=== PATIENT | male | born 1960 | race Caucasian/White ===

== ENCOUNTER 2024-03-15 15:47 | Emergency (ER) | payer BC, SELFPAY ==
[2024-03-15 15:49] VITALS: BP 159/85; PULSE 54; RESP 16; TEMP 36.7; O2SAT 99; BMI 23.0
--- NOTE | 2024-03-15 15:55 | ED.GENADULT ---
HPI - General Adult General Date Seen: 03/15/24 Chief complaint: Chest Pain Stated complaint: chest pain Time Seen by Provider: 03/15/24 15:55 History of Present Illness HPI narrative: 63 yo M with H/o with a history of atherosclerotic heart disease (2 stents about 9 years ago done at [facility]) symptoms presented with some atypical intermittent nonexertional chest pain. Labs were initially normal, had an abnormal stress test prompting his angiogram leading to his stents. Since then he has been on aspirin and atorvastatin but does not have a history of dyslipidemia. Also no history of high blood pressure, diabetes, smoking, or family history of coronary disease. He presents to the ER today with his for chest pain. He has been having episodes of substernal/S right upper chest pain off and on for the past several weeks. He has had perhaps 6 of them more so over the weeks. All of his episodes prior to today have been episodes where he has been sleeping and then awoken from sleep by chest discomfort. They last a few minutes and usually get better after he gets up and drink some water. He has not had any daytime chest pain or any exertional chest pain. He is fairly active in his generally around her. However due to some low back pain he has not been doing as much running lately. He has been walking. He actually has purchased an exercise bike and will start using that in the next couple of days. He went for a long 6 mi walk yesterday and had no symptoms of chest pain or shortness of breath. Today he was feeling fine this morning. He ate a light breakfast no lunch. [facility] with his . In the end the 1st half of the plate he began to feel unusual. Vaguely short of breath, some discomfort in his chest. It lasted for about 10 minutes until the intermission. He was able to get up and go get a drink of water. That helped a little bit but he still felt a bit unusual. All vaguely short of breath. Some mild ?tension? in his left trapezius ridge. No pain through to his back. He did not feel any palpitations. Mild nausea. No abdominal pain. No leg swelling. No pleuritic pain. Pain persisted after leaving the theatre. He and his were debating about whether he should come to the ER or not. Ultimately he decided to come. They drove from [place] back here to [place] which is home for him. Now that he is here his chest pain is resolved. It probably lasted less than an hour altogether. He is currently symptom free. He is under lot of stress with work and wonders if his chest pains could be stress related. He does not usually eat spicy foods. He has not had any swelling in his legs. He has had plane rides across the [facility] lately including to [place], [place], and [place]. He had a stress echo done through the [facility] health monitoring program a year ago that was normal. He has not had an angiogram since his stents were placed 9 years ago. Per records from [facility] link her medications and Aspirin 81 mg daily Atorvastatin 40 mg daily Vitamin D3 Flexeril for his low back spasm Nitroglycerin p.r.n. (has not taken) Trazodone 50 mg q.h.s. [place] 3 fatty acids Related Data Home Medications ?Medication ?Instructions ?Recorded ?Confirmed aspirin 81 mg capsule 81 mg PO DAILY 03/15/24 03/15/24 atorvastatin 40 mg tablet 40 mg PO DAILY 03/15/24 03/15/24 Previous Rx's ?Medication ?Instructions ?Recorded omeprazole 40 mg capsule,delayed 40 mg PO DAILY #30 caps 03/15/24 release Allergies Allergy/AdvReac Type Severity Reaction Status Date / Time bee venom protein (honey bee) AdvReac Severe Hypotension Verified 03/15/24 15:57 [facility] Social History Smoking Status: Never smoker Do you use any of these nicotine containing products: None Second hand tobacco smoke exposure: No How often do you have a drink containing alcohol: never AUDIT-C Alcohol total score: 0 Non-prescribed substance use: denies use Exam Narrative: Exam Narrative: Constitutional: Appears well-developed and well-nourished. Alert. Conversant. Non toxic. HENT: Head: Atraumatic. Nose: Nose normal. Mouth/Throat: Oral mucosa is clear and moist. no trismus. Pharynx normal. Tonsils symmetric. No tonsillar enlargement, erythema, or exudate. Eyes: Conjunctivae normal. EOM normal. Pupils equal, round, and reactive to light. No scleral icterus. Neck: Normal range of motion. Neck supple. No tracheal deviation present. No JVD Cardiovascular: Normal rate, regular rhythm. No gallop. No friction rub. No murmur heard. Symmetric radial and PT artery pulses Pulmonary/Chest: Effort normal. No stridor. No respiratory distress. No wheezes. No rales. No rhonchi . No tenderness. Abdominal: Soft. No distension. No mass. No tenderness. No rebound. No guarding. Musculoskeletal: RUE: Normal range of motion. No tenderness. No deformity LUE: Normal range of motion. No tenderness. No deformity RLE: Normal range of motion. No edema. No tenderness. No deformity LLE: Normal range of motion. No edema. No tenderness. No deformity Lymph: No cervical adenopathy. Neurological: Alert and oriented to person, place, and time. Normal strength. CN II-VII intact. No sensory deficit. GCS eye subscore is 4. GCS verbal subscore is 5. GCS motor subscore is 6. Normal coordination Skin: Skin is warm and dry. No rash noted. No pallor. Normal capillary refill. Psychiatric: Normal mood. Normal affect. Const: Vital Signs, click to edit/add: Vital Signs - 24 hr 03/15/24 15:49 03/15/24 17:07 03/15/24 17:08 Temperature 98.0 F Pulse Rate 53 L 57 L Pulse Rate [Pulse Oximeter] 54 L Respiratory Rate 16 Blood Pressure 135/86 Blood Pressure [Ri ght Upper Arm] 159/85 H Pulse Oximetry 99 100 99 Oxygen Delivery Me thod Room Air Course Vital Signs Vital signs: Initial Vital Signs Temperature 98.0 F 03/15/24 15:49 Temperature Source Temporal Artery Scan 03/15/24 15:49 Pulse Rate 54 L 03/15/24 15:49 Respiratory Rate 16 03/15/24 15:49 Blood Pressure 159/85 H 03/15/24 15:49 Blood Pressure Mean 109 H 03/15/24 15:49 Blood Pressure Position Sitting 03/15/24 15:49 Pulse Oximetry 99 03/15/24 15:49 Oxygen Delivery Method Room Air 03/15/24 15:49 Vital Signs Temperature 98.0 F 03/15/24 15:49 Pulse Rate 54 L 03/15/24 15:49 Respiratory Rate 16 03/15/24 15:49 Blood Pressure 159/85 H 03/15/24 15:49 Pulse Oximetry 99 03/15/24 15:49 Oxygen Delivery Method Room Air 03/15/24 15:49 Temperature 98.0 F 03/15/24 15:49 Pulse Rate 57 L 03/15/24 17:08 Respiratory Rate 16 03/15/24 15:49 Blood Pressure 135/86 03/15/24 17:07 Pulse Oximetry 99 03/15/24 17:08 Oxygen Delivery Method Room Air 03/15/24 15:49 Medications Administered Medications: Discontinued Medications Generic Name Dose Route Start Last Admin Trade Name Hilton PRN Reason Stop Dose Admin Aspirin 324 mg 03/15/24 16:26 03/15/24 16:36 Aspirin 81 Mg Tab.Chew PO 03/15/24 16:27 324 mg ONCE ONE Administration Medical Decision Making MDM Narrative Medical decision making narrative: This patient presents to the ER today for evaluation of chest pain. He does have a history of coronary artery disease with stents placed 9 years ago and a pattern of similar atypical nonexertional chest pain preceding that. His current episodes of chest pain have been occurring at rest off and on for the past couple of weeks and occurred again this afternoon while he was watching a theatre production. He has also had some activity. He is typically an avid runner but has been doing a lot less running lately because of some low back problems. However he does a lot of activity and walking without any exertional chest pain. Differential was broad. No evidence of palpitations, syncope or other cardiac dysrhythmia. He does have sinus bradycardia on his EKG. We considered possible ACS, however workup with EKG and troponin is negative. HEART score is 3. Given time since onset of symptoms, we did check initial and 3 hour delta troponin. I do not think the patient needs to be admitted for further sets of enzymes. Discussed with Cardiology through [facility], . He was able to access patient's previous records and saw his negative stress echo from last December. Discussed the patient's recent chest pains and chest pain today. He agrees with the plan to check delta troponins here in the ER. If normal patient should follow-up with his primary care provider to arrange an outpatient nuclear perfusion study. At this point with negative delta troponins, in the absence of a a clear exertional angina pattern, cardiology advises against going directed for cardiac catheterization. Discussed the plan of care with the patient and his . They will follow-up with her primary the [facility] and arrange the nuclear medicine perfusion study. Return to the ER with any more severe pains, frequent pains, prolonged duration, worsening shortness of breath, or any other worsening symptoms. EKG shows no evidence for pericarditis. Clinical presentation not suggestive of myocarditis. Chest x-ray shows no evidence for pneumonia, pneumothorax, pulmonary edema, pleural effusion, rib fracture, cardiomegaly. Mediastinum is normal on the x-ray. The patient has no ripping or tearing pain through to the back and has symmetric pulses on exam, no other acute neuro findings so I doubt aortic dissection. Risk of radiation and contrast exposure would outweigh the benefit of CT angiogram. We considered PE for this patient. Overall is low risk but risk factor would be recent travel. Screening D-dimer is normal. Therefore risk of radiation and contrast would outweigh the benefit of CT PA. No wheezing or bronchospasm to suggest COPD/asthma. No signs of chest wall cellulitis, shingles, injury. No right upper quadrant pain to suggest referred pain from cholecystitis. Patient admits that he is under lot of stress related to work lately and wonders if his pains could be anxiety. Also is pains at night tend to get better when he drinks water which could suggest possible esophageal reflux or esophageal spasm. We will try him on empiric course of Prilosec to see if that helps. While we do that though, the patient is following up for further outpatient cardiac workup. With reasonable clinical confidence, I think the patient is safe for outpatient follow up. Discussed return precautions. Questions answered. Patient voices comfort with the plan. Lab Data Labs: Lab Results 03/15/24 Range/Units 16:34 WBC 7.55 (4.50-11.00) K/uL RBC 4.65 (4.30-5.90) m/uL Hgb 13.5 (13.5-17.5) gm/dL Hct 40.6 (37.0-53.0) % MCV 87 (80-100) fL MCH 29 (26-34) pg MCHC 33 (32-36) gm/dL RDW Coeff of Estrada 11.5 (11.5-15.5) % Plt Count 200 (140-440) K/uL Neut % (Auto) 67.3 (42.0-72.0) % Lymph % (Auto) 23.3 (20-44) % [place] % (Auto) 5.4 (0.0-11.0) % Eos % (Auto) 3.0 (0.0-7.0) % Baso % (Auto) 0.1 (0.0-3.0) % Neut # (Auto) 5.07 (1.7-7.0) K/uL Lymph # (Auto) 1.76 (0.90-2.90) K/uL Churchill # (Auto) 0.40 (0.00-0.90) K/UL Eos # (Auto) 0.23 (0.00-0.50) K/uL Baso # (Auto) 0.01 (0.00-0.30) K/uL Abs Immat Gran (auto) 0.07 (0.00-0.30) K/uL Imm/Tot Granulo (auto) 0.9 % D-Dimer Quant (PE/DVT) 0.34 (0.00-0.50) ug/ml Sodium 137 (135-149) mmol/L Potassium 3.8 (3.6-5.1) mmol/L Chloride 101 (96-114) mmol/L Carbon Dioxide 30 (20-32) mmol/L Anion Gap 6 L (7-15) mEq/L BUN 22 (7-30) mg/dL Creatinine 0.8 (0.5-1.5) mg/dL Estimated Creat Clear 79.63 Estimated GFR 101 ml/min Glucose 97 (60-115) mg/dL Calcium 9.2 (8.4-10.6) mg/dL POC Troponin I 0.00 L (0.01-0.04) ng/ml Imaging Data Chest x-ray: My impression: Normal cardiac silhouette. Normal mediastinum. Clear lung ying. No rib fractures. No pneumothorax. No pleural effusions. Radiologist's impression: IMPRESSION: No findings to explain the clinical history. ECG Data Attestation: I personally reviewed and interpreted this ECG as follows: Interpretation: Sinus bradycardia Rate: 50 [place]: 172 QRS axis: Normal axis. Q-wave in V1. ST segment/T wave: No ST segment elevation or depression. QTc: 419 Discharge Plan Discharge Clinical Impression: Chest pain Patient Disposition: Home, Self-Care Condition: Stable Instructions: Chest Pain (DC) Additional Instructions: As we discussed, return to the ER right away if you have worsening chest pain, more frequent episodes of chest pain, or any other worsening or concerning symptoms. Please follow-up with your regular doctor at the [facility] clinic as soon as possible to arrange an outpatient cardiac test. Your high school music teacher from [place] is recommending a cardiac nuclear perfusion study. Will start you on Prilosec which is a medicine for stomach acid. If your pains are actually due to acid reflux into your esophagus, this may help your pain get better over the next couple of weeks. However it is very important for you to follow-up with her doctor and make sure we have a complete and thorough cardiac workup. Prescriptions: New omeprazole 40 mg capsule,delayed release(DR/EC) 40 mg PO DAILY Qty: 30 2RF No Action atorvastatin 40 mg tablet 40 mg PO DAILY aspirin 81 mg capsule 81 mg PO DAILY Follow Up/Referrals: Medhat Marrero MD [Primary Care Provider] - Stand Alone Forms: [facility]aehas Info Instructions
--- NOTE | 2024-03-15 16:26 | CRLHL7_ITS ---
For Patients: As a result of the Cures Act, medical imaging exams and procedure reports are released immediately into your electronic medical record. You may view this report before your referring provider. If you have questions, please contact your health care provider. INDICATION: Substernal chest discomfort. COMPARISON: 08/21/2015 TECHNIQUE: 2 views. FINDINGS: Medical Devices: None. Lung Volumes: Adequate inspiration. No significant atelectasis. Lungs: Clear lungs. Pleura and Pleural spaces: No significant pleural effusion. No pneumothorax. Mediastinum: Normal cardiomediastinal silhouette. Bony Thorax and Soft Tissues: No significant incidental findings. IMPRESSION: No findings to explain the clinical history. Dictated by Jose Alejandro Gupta MD @ 03/15/2024 5:46:04 PM (Electronically Signed)
[2024-03-15] MEDS: ASPIRIN 81 MG TAB.CHEW 324 MG PO (16:36)
[2024-03-15 16:47] LABS: Basophils Absolute Auto 0.01 K/uL (0.00-0.30); Basophils Percent Auto 0.1 % (0.0-3.0); Eosinophils Absolute Auto 0.23 K/uL (0.00-0.50); Hematocrit 40.6 % (37.0-53.0); Hemoglobin* 13.5 gm/dL (13.5-17.5); Immature Granulocytes Abs Auto 0.07 K/uL (0.00-0.30); Immature Granulocytes Pct Auto 0.9 %; Lymphocytes Absolute Auto 1.76 K/uL (0.90-2.90); Lymphocytes Percent Auto 23.3 % (20-44); Mean Corpuscular HGB Conc 33 gm/dL (32-36); Mean Corpuscular Hemoglobin 29 pg (26-34); Mean Corpuscular Volume 87 fL (80-100); Monocytes Percent Auto 5.4 % (0.0-11.0); Neutrophils Absolute Auto 5.07 K/uL (1.7-7.0); Neutrophils Percent Auto 67.3 % (42.0-72.0); Platelet Count* 200 K/uL (140-440); RDW Coefficient of Variation % 11.5 % (11.5-15.5); Red Blood Count 4.65 m/uL (4.30-5.90); White Blood Count* 7.55 K/uL (4.50-11.00)
[2024-03-15 16:49] LABS: Slide Review Reflex No
[2024-03-15 17:00] LABS: Chloride* 101 mmol/L (96-114)
[2024-03-15 17:01] LABS: Potassium* 3.8 mmol/L (3.6-5.1); Sodium* 137 mmol/L (135-149)
[2024-03-15 17:03] LABS: Creatinine* 0.8 mg/dL (0.5-1.5); Est. Creatinine Clearance* 79.63; Estimated Glomerular Filt Rate 101 ml/min
[2024-03-15 17:04] LABS: Anion Gap 6 mEq/L (7-15); Blood Urea Nitrogen* 22 mg/dL (7-30); Calcium* 9.2 mg/dL (8.4-10.6); Carbon Dioxide* 30 mmol/L (20-32); Glucose* 97 mg/dL (60-115)
[2024-03-15 17:06] LABS: D Dimer Quantitative* 0.34 ug/ml (0.00-0.50)
[2024-03-15 17:07] VITALS: BP 135/86; PULSE 53; O2SAT 100
[2024-03-15 17:08] VITALS: PULSE 57; O2SAT 99
[2024-03-15 19:00] VITALS: O2SAT 99
[2024-03-15 20:04] VITALS: BP 125/74; PULSE 60; RESP 16; TEMP 36.7; O2SAT 99
[2024-03-15 20:07] VITALS: BP 125/74; PULSE 60; RESP 16; TEMP 36.7
== END 2024-03-15 20:07 | disposition home or self-care (01) ==
PROVIDERS: Emergency Provider Emergency Medicine; PCP Family Medicine
DX: R07.9 Chest pain, unspecified (principal)
CPT/HCPCS: 36415; 71046; 80048; 84484; 85025; 85379; 94761; 99284; A9270